=== PATIENT | male | born 1960 | race Caucasian/White ===

== ENCOUNTER 2018-12-03 08:30 | Emergency (ER) | payer BC, OTHER ==
[~2018-12-03] VITALS: Ht 182.9 cm; Wt 80.8 kg
--- NOTE | 2018-12-03 08:45 | NUR ---
"I FELL AT WORK ON . I'VE HAD SEIZURES BEFORE. I'M NOT ON ANY MEDS. I HADN'T DRANK FOR ABOUT 2 WEEKS BEFORE." PER FRIEND "I ASKED WHERE HIS TRUCK WAS. HE SAID I WAS DIZZY AND I'M HOME. ON MONDAY MORNING HE WAS HAVING A BAD CASE OF THE DT's. HE WAS STILL CONFUSED ABOUT WHAT WAS GOING ON AND MONDAY TOO. ON MONDAY HE PUT THE TRASH CANS OUT, HEADING TO WORK. HE THOUGHT IT WAS MONDAY. HE JUST DOESN'T KNOW ANYTHING GOING ON. REALLY HAZY AND CONFUSED." EDPA BEDSIDE. NO ACUTE DISTRESS NOTED. PT PLACED ON CONT PULSE OX,NIBP.
[2018-12-03] MEDS ORDERED: SODIUM CHLORIDE FLUSH 10ML SYR IVF ONE (09:00)
--- NOTE | 2018-12-03 09:18 | NUR ---
TO RADIOLOGY AFTER IV ESTABLISHED, BLOOD DRAWN AND EKG. FATHER AT BEDSIDE. PT HAS TREMORS
--- NOTE | 2018-12-03 09:20 | NUR ---
abrasion left ribcage area
--- NOTE | 2018-12-03 09:20 | NUR ---
PT HAS BRUISING LEFT UPPER ARM, LEFT JAW
[2018-12-03 09:28] LABS: BASOPHILS # (AUTO) 0.03 x10^3/uL (0-0.1); BASOPHILS % (AUTO) 0 % (0-1); EOSINOPHILS % (AUTO) 0 % (1-7); LYMPHOCYTES # (AUTO) 0.95 x10^3/uL (1-3.4); LYMPHOCYTES % (AUTO) 7 % (22-44); MD NO; MEAN CORPUSCULAR HEMOGLOBIN 35.5 pg (27.5-34.5); MEAN CORPUSCULAR HGB CONC 34.3 g/dL (33.2-36.2); MEAN CORPUSCULAR VOLUME 103.5 fL (81-97); MEAN PLATELET VOLUME 7.5 fL (7.4-10.4); MONOCYTES # (AUTO) 1.44 x10^3/uL (0.2-0.8); MONOCYTES % (AUTO) 11 % (2-9); NEUTROPHILS # (AUTO) 10.79 x10^3/uL (1.8-6.8); NEUTROPHILS % (AUTO) 82 % (42-75); PLATELET COUNT 237 x10^3/uL (130-400); RED BLOOD COUNT 4.16 x10^6/uL (4.38-5.82)
[2018-12-03 09:35] LABS: ALANINE AMINOTRANSFERASE 109 U/L (12-78); ALBUMIN 4.1 g/dL (3.4-5.0); ANION GAP 12 mmol/L (5-15); CALCIUM 8.9 mg/dL (8.5-10.1); CHLORIDE 95 mmol/L (98-107)
[2018-12-03 09:38] LABS: ALKALINE PHOSPHATASE 121 U/L (45-117); BILIRUBIN,TOTAL 3.1 mg/dL (0.2-1.0); TOTAL PROTEIN 8.5 g/dL (6.4-8.2)
[2018-12-03] MEDS ORDERED: POTASSIUM CHLORIDE 20 MEQ PACKET PO ONE (10:00)
[2018-12-03] MEDS ORDERED: MAGNESIUM SULFATE 1 GM/2 ML IVPush ONE (10:00)
[2018-12-03] MEDS ORDERED: SODIUM CHLORIDE 0.9% 1,000ML IVBOLUS ONE (10:00)
[2018-12-03] MEDS ORDERED: MAGNESIUM SULFATE 1 GM in SODIUM CHLORIDE 0.9% 50 ML IVPB ONE ×2 (10:30→15:00)
--- NOTE | 2018-12-03 10:37 | NUR ---
DR CERVANTES NEUROLOGIST EXAMINING PT VIA TELE NEURO
--- NOTE | 2018-12-03 11:07 | NUR ---
BEDSIDE ABDOMINAL ULTRASOUND BEING PERFORMED
[2018-12-03 12:10] LABS: INTERNATIONAL NORMALIZED RATIO 1.15 (0.93-1.1)
--- NOTE | 2018-12-03 12:50 | NUR ---
AWAKE, TALKING TO PARENTS. REMAINS CONFUSED. PT HAD BEEN TO CT BUT WHEN ASKED ABOUT IT SAID HE HAD NOT GONE YET
[2018-12-03] MEDS ORDERED: OMNIPAQUE 350 MG/ML, 100ML BOTTLE ONE (13:32)
--- NOTE | 2018-12-03 14:00 | NUR ---
UP TO COMMODE WITH ASSISTANCE. LOOSE STOOL. REMAINS A&O BUT DISPLAYS SIGNS OF CONFUSION
[2018-12-03] MEDS ORDERED: MAGNESIUM SULFATE PMX 2GM/50ML 50 ML ONE (14:28)
[2018-12-03] MEDS ORDERED: POTASSIUM CHLORIDE 40 MEQ in SODIUM CHLORIDE 0.9% 500 ML IV ONE (15:00)
--- NOTE | 2018-12-03 15:16 | NUR ---
BREAK RN: pt upright on gurney awake & comfortable, responds approp to staff, NAD, comfort measures provided, family at BS, call light within reach.
--- NOTE | 2018-12-03 16:23 | NUR ---
REPORT TO SUZETTE FARRELL PT TO BE TRANSPORTED BY [facility] SHORTLY.
[2018-12-03 16:51] VITALS: BP 134/84
--- NOTE | 2018-12-03 17:01 | NUR ---
BEDSIDE REPORT TO VIKKI AGUILA. PT TO BE TRANSPORTED TO [facility]
== END 2018-12-03 18:28 ==
LOC: ED 10:49
DX: S09.90XA Unspecified injury of head, initial encounter (principal); K70.10 Alcoholic hepatitis without ascites; R41.0 Disorientation, unspecified; I10 Essential (primary) hypertension; X58.XXXA Exposure to other specified factors, initial encounter; Y93.89 Activity, other specified; Y92.89 Other specified places as the place of occurrence of the external cause; Y99.8 Other external cause status
CPT/HCPCS: 36415; 70450; 70486; 70496; 71101; 76700; 80053; 82140; 83690; 85025; 85610; 85730; 93005; 96365; 96366; 96368; 99285; J3475; J3480; J7030; J7040; Q9967